=== PATIENT | male | born 2005 | race Caucasian/White ===

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

== ENCOUNTER 2023-01-03 10:01 | Outpatient (CLI) | payer OTHER, SELFPAY ==
[2023-01-03 18:40] LABS: Alanine Aminotransferase 18 U/L (6-50); Albumin Level 4.6 g/dL (3.7-5.6); Alkaline Phosphatase 75 U/L (58-237); Anion Gap 5 mmol/L (8-16); Aspartate Amino Transferase 69 U/L (17-59); Bilirubin,Total 0.5 mg/dL (0.2-1.3); Blood Urea Nitrogen 8 mg/dL (8-21); Carbon Dioxide 31 mmol/L (22-30); Chloride 104 mmol/L (98-107); Cholesterol 114 mg/dL (0-200); Estimated Glomerular Filt Rate > 60; Glucose 97 mg/dL (65-110); HDL Direct 36 mg/dL; Sodium 140 mmol/L (134-143); Triglycerides 140 mg/dL (<150)
[2023-01-03 18:44] LABS: Basophils Absolute Auto 0.1 K/mm3 (0.0-0.1); Basophils Percent Auto 0.5 % (0.2-1.2); Eosinophils Absolute Auto 0.2 K/mm3 (0-0.3); Eosinophils Percent Auto 1.9 % (0-4.4); Hematocrit 44.6 % (42.0-52.0); Hemoglobin 15.2 g/dL (14.0-18.0); Immature Granulocyte Absolute 0.03 K/mm3 (0.00-0.031); Immature Granulocyte Percent A 0.3 % (0-0.5); Lymphocytes Absolute Auto 2.77 K/mm3 (0.9-3.2); Lymphocytes Percent Auto 30.4 % (18.3-44.2); Mean Corpuscular HGB Conc 34.1 g/dl (32-36); Mean Corpuscular Hemoglobin 29.6 pg (26-34); Mean Corpuscular Volume 86.8 fl (80-100); Mean Platelet Volume 11.1 fl (7.4-10.4); Monocytes Absolute Auto 0.6 K/mm3 (0.1-0.6); Neutrophils Absolute Auto 5.4 K/mm3 (1.3-6.7); Neutrophils Percent Auto 59.9 % (45.5-73.1); Platelet Count Result 220 k/mm3 (150-375); Red Blood Count 5.14 M/mm3 (4.6-6.20); Red Cell Distribution Width 12.9 % (11.5-14.5); White Blood Count 9.1 K/mm3 (4.5-10.0)
[2023-01-03 19:12] LABS: LDL Cholesterol Direct 61 mg/dL
[2023-01-04 09:24] LABS: Rapid Plasma Reagin Non-Reactive (NonReactive)
[2023-01-06 10:45] LABS: HIV 1 2 Ag Ab 4th Gen w Rflxs Nonreactive (Nonreactive)
== END 2023-01-03 10:02 | disposition home or self-care (01) ==
PROVIDERS: PCP Family Medicine; Visit Provider Family Medicine
DX: Z00.00 Encounter for general adult medical examination without abnormal findings (principal); F41.9 Anxiety disorder, unspecified
CPT/HCPCS: 36415; 80053; 80061; 85025; 86592; 87389; 87491; 87591

== ENCOUNTER 2024-05-30 16:00 | Emergency (ER) | payer OTHER, SELFPAY ==
[2024-05-30 16:10] VITALS: BP 138/80; PULSE 74; RESP 18; TEMP 37.1; O2SAT 100
--- NOTE | 2024-05-30 16:19 | ED.MALEGU ---
HPI - Male Genitourinary General Chief complaint: Urogenital-Male Stated complaint: Unspecified Time Seen by Provider: 05/30/24 16:19 Source: patient Mode of arrival: ambulatory Limitations: no limitations History of Present Illness HPI Narrative: 18-year-old male presents with complaint of redness to urethra with irritation and fishy odor for the past 2-3 days. Patient reports possible chlamydia exposure. Recent sexual partner had chlamydia 2-3 months ago. Did states that they had treatment. Patient denies back and abdominal pain. No dysuria. Also reports wheezing, dry cough for the past 3-4 days. Using albuterol inhaler more than usual. Afebrile. All systems reviewed and negative except as noted above. Related Data Allergies Allergy/AdvReac Type Severity Reaction Status Date / Time No Known Allergies Allergy Verified 05/30/24 16:05 Review of Systems Review of Systems: CONSTITUTIONAL: Denies fever, chills, or sweats. EYES: Denies visual changes, redness, or discharge. ENT: Denies rhinorrhea, congestion, sore throat, or otalgia. CARDIOVASCULAR: Denies chest pain, palpitations, or edema. RESPIRATORY: Reports cough, wheezing. Denies dyspnea. GASTROINTESTINAL: Denies abdominal pain, nausea, vomiting, or diarrhea. GENITOURINARY: Denies dysuria or hematuria. reports fishy odor, urethral redness. SKIN: Denies rash or itching. MUSCULOSKELETAL: Denies back pain, joint pain, or myalgia. NEUROLOGIC: Denies headache, numbness, or weakness. PSYCHIATRIC: Denies anxiety or depression. All other systems reviewed are negative, except as documented in HPI. PMFSH Family History Family History (Updated 11/02/19 @ 14:49 by Marnie Roman, [employer] EXPERIENCE COORDINATOR) Other No active medical problems Social History Social History (Updated 01/03/23 @ 09:31 by Ana Agudelo MA) Smoking status: Never smoker Second hand tobacco smoke exposure: No Living arrangements: with family Occupation/Education: student Comments At time of signature, agree with nursing past medical, surgical, social and family history. There is no relevant family history pertinent to the presenting complaint. Exam Narrative: GENERAL: This is a well-nourished, well-developed patient, in no apparent distress. HEAD: normocephalic, atraumatic. EYES: PERRL. Sclera clear/white. Vision is grossly intact. EARS: External ears normal NOSE: External nose normal NECK: Neck supple, non-tender without lymphadenopathy, masses or thyromegaly. CARDIOVASCULAR: Regular rate and rhythm without murmurs, gallops, or rubs. RESPIRATORY: Very mild expiratory wheeze throughout all lung samuel. Breath sounds equal bilaterally. No rales, or rhonchi. GASTROINTESTINAL: Abdomen soft, non-tender, nondistended. Bowel sounds are active. No hepato-splenomegaly, or palpable masses. No guarding. SKIN: warm, Dry, intact with no suspicious lesions or rash, good texture and turgor. NEURO: awake, alert, and oriented to person, place and time. There were no obvious focal neurologic abnormalities. EXTREMITIES: No joint tenderness, effusion, or edema noted. Course Course Level of Care: Express Care Visit Vital Signs Vital signs: Vital Signs Temperature 37.1 C 05/30/24 16:10 Pulse Rate 74 05/30/24 16:10 Respiratory Rate 18 05/30/24 16:10 Blood Pressure 138/80 05/30/24 16:10 Pulse Oximetry 100 05/30/24 16:10 Temperature 37.1 C 05/30/24 16:10 Pulse Rate 74 05/30/24 16:10 Respiratory Rate 18 05/30/24 16:10 Blood Pressure 138/80 05/30/24 16:10 Pulse Oximetry 100 05/30/24 16:10 Reviewed MDM - Male Genitourinary MDM Narrative Medical decision making narrative: STI testing for gonorrhea, chlamydia and Trichomonas. Will treat patient with doxycycline today due to patient's symptoms and possible chlamydia exposure. Patient is aware of diagnosis, understands and agrees to treatment plan. Anticipatory guidance given. Patient agrees t
[2024-05-30 16:51] LABS: EDUAAPPEAR Clear; EDUABILI Negative (Negative); EDUABLOOD Negative (Negative); EDUACOLOR1 Light/Pale; EDUAGLUCOSE Negative (Negative); EDUAKETONE Negative (Negative); EDUALEUKO Negative (Negative); EDUANITRATE Negative (Negative); EDUAPROTEIN Negative (Negative); EDUAUROBILI 0.2
[2024-05-30 20:12] LABS: Trichomonas Vag PCR NOT DETECTED (NOT DETECTE)
[2024-05-30 20:38] LABS: Chlamydia trachomatis NOT DETECTED (NOT DETECTE); Neisseria gonorrhoeae PCR NOT DETECTED (NOT DETECTE)
== END 2024-05-30 16:50 | disposition home or self-care (01) ==
PROVIDERS: Emergency Provider Nurse Practitioner Family
DX: Z20.2 Contact with and (suspected) exposure to infections with a predominantly sexual mode of transmission (principal); J45.901 Unspecified asthma with (acute) exacerbation
CPT/HCPCS: 81003; 87491; 87591; 87661; 99213; G0463

== ENCOUNTER 2024-11-24 10:28 | Emergency (ER) | payer OTHER, SELFPAY ==
--- OUTSIDE RECORDS SUMMARY | 2024-11-24 10:31 | XMS_ITS | Clinical Summary ---
Author Organization [facility] Address [address] [place] [address] Phone Care Team Providers Care Cable Mock Up Assembler Name Role Phone Yoko Aguero MD Primary Care Provider [phone] Allergies No known active allergies Medications ibuprofen (MOTRIN) 600 MG Tablet Take 1 Tab by mouth every 8 hours as needed for Fever or Pain. 30 Tab 04/15/2017 Active Social History Tobacco Use Types Packs/Day Years Used Date Smoking Tobacco: Never Alcohol Use Standard Drinks/Week Comments No 0 (1 standard drink = 0.6 oz pur e alcohol) Sex and Gender Information Value Date Recorded Sex Assigned at Not on file Legal Sex Male 10:51 AM CDT Gender Identity Not on file Sexual Orientation Not on file Last Filed Vital Signs Vital Sign Reading Time Taken Comments Blood Pressure 121/86 04/15/2017 10:53 AM CDT Pulse 83 04/15/2017 10:53 AM CDT Temperature 35.7 C (96.3 F) 04/15/2017 10:53 AM CDT Respiratory Rate 20 04/15/2017 10:53 AM CDT Oxygen Saturation 100% 04/15/2017 10:53 AM CDT Inhaled Oxygen Concentration - - Weight 55.8 kg (123 lb) 04/15/2017 10:53 AM CDT Height 162.6 cm (5' 4 ) 04/15/2017 10:53 AM CDT Body Mass Index 21.11 04/15/2017 10:53 AM CDT Plan of Treatment Health Maintenance Due Date Last Done Comments Hepatitis C Virus (HCV) Screening 2003 TdaP Immunization 2003 Human Papillomavirus (HPV) Immunization (1 - Male 3-dose series) 2018 Meningococcal B Immunization (1 of 2 - Standard) 2019 Hepatitis B Immunization (1 of 3 - 19+ 3-dose series) 2022 Influenza Immunization (#1) 2024 SARS-COV-2 Immunization ( - 2023- season) 2024 Respiratory Syncytial Virus (RSV) Immunization (Adult) (1 - 1-dose 75+ series) 2078 Meningococcal Immunization (ACWY) Aged Out No longer eligible based on patient's age to complete this topic Pneumococcal Immunization Combined Aged Out No longer eligible based on patient's age to complete this topic Rotavirus Immunization Aged Out No lo nger eligible based on patient's age to complete this topic Insurance Care Teams Cable Mock Up Assembler Relationship Specialty Start Date End Date Yoko Aguero MD [address] [place] [address] DR SANDHU [address] [place] [id number] PCP - General Pediatrics 04/15/17
--- OUTSIDE RECORDS SUMMARY | 2024-11-24 10:34 | XMS_ITS | Clinical Summary ---
Author Organization [facility] Address [address] [place] [id number] Care Team Providers Care Irrigator Overhead Name Role Phone None, Provider MD Primary Care Provider Unavaila ble Allergies No known active allergies Medications albuterol sulfate HFA 108 (90 Base) MCG/ACT inhaler INHALE TWO BY MOUTH NEEDED FOR SHORTNESS OF BREATH EVERY 4 HOURS 2 Active Active Problems No known active problems Immunizations Name Administration Dates Next Due [id number] (Pediarix) 04/12/2005 DTaP-IPV (Kinrix) 03/06/2009 Dtap (Acel-Immune) 02/21/2004,2003, 004 HPV GARDASIL 9-VALENT 07/18/2017,04/09/2016 Hepatitis A (Generic) 03/06/2009,03/30/2007 Hepatitis B Pediatric 02/21/2004,2003,03/2004 Hib (Generic) 04/12/2005, 4,2003,10/13 MENINGOCOCCAL A C Y&W-135 oligosaccharide (MENVEO) 05/02/2020,03/14/2015 MMR (MMRII) 03/06/2009,04/12/2005 Pneumococcal (Prevnar 7) 02/21/2004,2003 Polio IPV (Ipol) 2003,2003 Tdap (Generic) 03/14/2015 Varicella (Varivax) 03/06/2009,04/12/2005 Social History Tobacco Use Types Packs/Day Years Used Date Smoking Tobacco: Never Smokeless Tobacco: Never Alcohol Use Standard Drinks/Week Comments Never 0 (1 standard drink = 0.6 oz pur e alcohol) Sex and Gender Information Value Date Recorded Sex Assigned at Not on file Legal Sex Male 2:24 PM CDT Gender Identity Not on file Sexual Orientation Not on file Last Filed Vital Signs Vital Sign Reading Time Taken Comments Blood Pressure 129/78 05/21/2022 1:18 PM CDT Pulse 62 05/21/2022 1:18 PM CDT Temperature 36.6 C (97.8 F) 05/21/2022 1:18 PM CDT Respiratory Rate 16 05/21/2022 1:18 PM CDT Oxygen Saturation 99% 05/21/2022 1:18 PM CDT Inhaled Oxygen Concentration - - Weight 90.7 kg (200 lb) 05/21/2022 1:18 PM CDT Height 180.3 cm (5' 11 ) 05/21/2022 1:18 PM CDT Body Mass Index 27.89 05/21/2022 1:18 PM CDT Plan of Treatment Health Maintenance Due Date Last Done Comments Annual Physical 2006 Meningococcal B Vaccine (1 of 2 - Standard) 2019 Hepatitis C 2021 COVID-19 Vaccine ( - 2023- season) 2024 DTaP, Tdap and Td Vaccines (7 - Td or Tdap) 03/14/2025 03/14/2015, 03/06/2009, 04/12/2005, Additional history exists Pneumococcal Vaccine: Pediatrics (0 to 5 Years) and At-Risk Patients (6 to 64 Years) Aged Out 02/21/2004, 2003 No longer eligibl e based on patient's age to complete this topic Hepatitis B Vaccines Completed 04/12/2005, 02/21/2004, 2003, Additional history exists HPV Vaccines Completed 07/18/2017, 04/09/2016 Meningococcal Vaccine Completed 05/02/2020, 015 RSV Immunizations Under 20 Months Aged Out No longer eligible based on patient's age to complete this topic [place] [id number] [employer] Care Teams Irrigator Overhead Relationship Specialty Start Date End Date None, Provider, PCP - General 04/22/22
[2024-11-24 10:35] VITALS: BP 140/76; PULSE 78; RESP 16; TEMP 36.9; O2SAT 99
--- NOTE | 2024-11-24 10:59 | ED.GENADULT ---
HPI - General Adult General Chief complaint: Upper Respiratory Infection Stated complaint: Headache/Sore Throat/Sinus/Body Aches Source: patient Mode of arrival: ambulatory Limitations: no limitations History of Present Illness HPI narrative: Patient presents for evaluation of sick symptoms since yesterday. Symptoms include sinus congestion, sore throat, nausea, cough, hot flashes and chills. No otalgia, vomiting or diarrhea. No recent sick contacts. He has been taking tylenol and ibuprofen for his symptoms. He does vape. Related Data Home Medications ?Medication ?Instructions ?Recorded ?Confirmed ?Last Taken ?Type No Home Medications 11/24/24 11/24/24 Unknown History Allergies Allergy/AdvReac Type Severity Reaction Status Date / Time No Known Allergies Allergy Verified 11/24/24 10:32 Review of Systems Review of Systems: CONSTITUTIONAL: Reports hot flashes and chills EYES: Denies visual changes, redness, or discharge. ENT: Reports sinus congestion and sore throat. Denies otalgia. CARDIOVASCULAR: Denies chest pain, palpitations, or edema. RESPIRATORY: Reports cough. Denies shortness of breath. GASTROINTESTINAL: Reports nausea. Denies abdominal pain, vomiting, diarrhea. GENITOURINARY: Denies dysuria or hematuria. SKIN: Denies rash or itching. MUSCULOSKELETAL: Denies back pain, joint pain, or myalgia. NEUROLOGIC: Denies headache, numbness, dizziness, or weakness. PSYCHIATRIC: Denies anxiety or depression. [facility] Past Medical History Medical History No pertinent past medical history Surgical History Surgical History No pertinent past surgical history Family History Family History Other No active medical problems Social History Social History Smoking status: Current every day smoker Tobacco type: e-cigarettes/vaping Second hand tobacco smoke exposure: No Living arrangements: with family Occupation/Education: student Gender identity (if verbalized by the patient): Male Exam Narrative: GENERAL: Well-appearing, well-nourished, and in no acute distress. HEAD: Normocephalic, atraumatic. EYES: PERRLA and EOMI. ENT: Nares clear, no rhinorrhea or epistaxis. Mucous membranes moist. Oropharynx without tonsillar hypertrophy exudate or other lesions. Bilateral TMs p[place] nonbulging NECK: Supple. No adenopathy or masses. No carotid bruits or JVD CHEST: Clear to auscultation. No respiratory distress. No wheezes rales or rhonchi HEART: Regular rate and rhythm. No murmur heard. Normal peripheral pulses. ABDOMEN: Soft, nontender, nondistended, normal active bowel sounds. EXTREMITIES: Normal range of motion. No edema. SKIN: Warm, dry, no rash. NEURO: No focal deficits. Alert and oriented x3. PSYCH: Normal mood and affect. Course Course Emergency Course: This is a 19 yr old male who presented for evaluation of sick symptoms. COVID, flu and strep negative. Will send throat culture. Exam consistent with acute viral syndrome. Increase hydration. OTC agents for symptom management. Follow up with primary care provider. Go to the ER for worsening symptoms. Pt in agreement with plan of care. Level of Care: Express Care Visit Vital Signs Vital signs: Vital Signs Temperature 36.9 C 11/24/24 10:35 Pulse Rate 78 11/24/24 10:35 Respiratory Rate 16 11/24/24 10:35 Blood Pressure 140/76 11/24/24 10:35 Pulse Oximetry 99 11/24/24 10:35 Oxygen Delivery Room Air 11/24/24 10:35 Temperature 36.9 C 11/24/24 10:35 Pulse Rate 78 11/24/24 10:35 Respiratory Rate 16 11/24/24 10:35 Blood Pressure 140/76 11/24/24 10:35 Pulse Oximetry 99 11/24/24 10:35 Oxygen Delivery Room Air 11/24/24 10:35 Medical Decision Making Vital Signs Vital Signs: Vital Signs Temperature 36.9 C 11/24/24 10:35 Pulse Rate 78 11/24/24 10:35 Respiratory Rate 16 11/24/24 10:35 Blood Pressure 140/76 11/24/24 10:35 Pulse Oximetry 99 11/24/24 10:35 Oxygen Delivery Room Air 11/24/24 10:35 Temperature 36.9 C 11/24/24 10:35 Pulse Rate 78 11/24/24 10:35 Respiratory Rate 16 11/24/24 10:35 Blood Pressure 140/76 11/24/24 10:35 Pulse Oximetry 99 11/24/24 10:35 Oxygen Delivery Room Air 11/24/24 10:35 Lab Data Labs: Lab Results 11/24/24 11/24/24 Range/Units 10:58 11:05 POC Influenza A Ag Negative (Negative) POC Influenza B Ag Negative (Negative) POC SARS CoV-2 Ag Negative (Negative) POC Grp A Strep Screen Negative (Negative) Discharge Plan Discharge Clinical Impression: Acute viral syndrome Patient Disposition: Home Condition: Stable Instructions: Antibiotic Form, Viral Syndrome (ED) Additional Instructions: DESLYM(Dextromethorphan) should help with cough Sudafed can help with sinus congestion Cepacol lozenges can help with sore throat Make sure to stay well hydrated Patient Language: Kazakh Prescriptions: No Action No Home Medications Follow-up/Referrals: Neftaly Perry MD [Physician] - Time of Disposition: 11:12
[2024-11-24 11:00] LABS: EDSTREPNEGPOS1 Negative (Negative)
[2024-11-24 11:08] LABS: EDCOVIDSCREEN Negative (Negative); EDINFLUASCREEN Negative (Negative); EDINFLUBSCREEN Negative (Negative)
== END 2024-11-24 11:15 | disposition home or self-care (01) ==
PROVIDERS: Emergency Provider Nurse Practitioner
DX: B34.9 Viral infection, unspecified (principal); F17.290 Nicotine dependence, other tobacco product, uncomplicated; Z20.822 Contact with and (suspected) exposure to COVID-19
CPT/HCPCS: 87081; 87426; 87804; 87880; 99213; G0463